=== PATIENT | female | born 1970 | race Caucasian/White ===

== ENCOUNTER 2020-02-05 10:21 | Emergency (ER) | payer BC, SELFPAY ==
--- NOTE | ~2020-02-05 | US_ITS ---
EXAMINATION: US pelvic complete w TV DATE: 02/05/2020 11:33 INDICATION: Right-sided pelvic pain, hysterectomy TECHNIQUE: Multiple transabdominal and endovaginal sonographic images of the pelvis were obtained. COMPARISON: 04/29/2018 FINDINGS: The uterus is surgically absent. The right ovary measures 2.5 x 2.1 x 2.3 cm. The left ovar y measures 4.5 x 2.2 x 2.8 cm. There is a 2.9 cm simple cyst of the left ovary. A 2.1 x 1.9 cm isoech oic lesion is also noted in the left ovary. There is normal vascular flow in the ovaries. There is no free fluid in the pelvis. IMPRESSION: 1. No sonographic correlate for the patient's symptoms. 2. Hemorrhagic cyst or endometrioma of the left ovary. Follow-up ultrasound in 6-12 weeks is recommen ded. Reviewed, dictated and finalized at location B. IMPRESSION: 1. No sonographic correlate for the patient's symptoms. 2. Hemorrhagic cyst or endometrioma of the left ovary. Follow-up ultrasound in 6-12 weeks is recommended.
--- NOTE | ~2020-02-05 | CT_ITS ---
EXAMINATION: CT abdomen pelvis w con DATE: 02/05/2020 12:15 INDICATION: Right lower quadrant abdominal pain TECHNIQUE: Computed tomography (CT) of the abdomen and pelvis was performed with mild atelectasis at the bilateral lung bases. mL Omnipaque-350 intravenous contrast. Automated exposure control and itera tive reconstruction technique were employed. The dose-length product was 389.30 mGy-cm. COMPARISON: 08/05/2012 FINDINGS: Discoid atelectasis in the bilateral lower lobes. Visualized inferior heart is normal. No pericardial or pleural effusion. Focal hepatic steatosis along the ligamentum teres. Gallbladder, spleen, pancre as and bilateral adrenal glands are normal. There are few scattered colonic diverticula without adjac ent inflammatory change to suggest diverticulitis. Small bowel and appendix are normal. 2.0 cm left o varian cyst demonstrating simple fluid attenuation. Smaller lesions measuring 2.3 cm the left ovary a nd 2.0 cm cyst in the right ovary both with thin peripheral rim enhancement and with greater than sim ple fluid attenuation centrally. Bladder is normal. The uterus is not identified and has likely been surgically resected. No free intraperitoneal gas or fluid. No pathologically enlarged abdominal or pe lvic lymphadenopathy. Minimal scattered degenerative skeletal changes. IMPRESSION: 1. Couple indeterminate bilateral ovarian lesions measuring 2.3 cm on the left and 2.0 cm on the righ t with greater than simple fluid attenuation centrally with most likely differential including comple x hemorrhagic or corpus luteum cysts or endometrioma. Solid neoplasm considered less likely. Recommen d follow-up ultrasound in 6-12 weeks. 2. Normal appendix and gallbladder. No other acute intra-abdominal/pelvic process. Reviewed, dictated and finalized at location A. IMPRESSION: 1. Couple indeterminate bilateral ovarian lesions measuring 2.3 cm on the left and 2.0 cm on the right with greater than simple fluid attenuation centrally wi th most likely differential including complex hemorrhagic or corpus luteum cyst s or endometrioma. Solid neoplasm considered less likely. Recommend follow-up u ltrasound in 6-12 weeks. 2. Normal appendix and gallbladder. No other acute intra-abdominal/pelvic proce ss.
[2020-02-05 10:26] VITALS: BP 162/95; PULSE 88; RESP 18; TEMP 36.9; O2SAT 100
[2020-02-05 10:43] LABS: Basophils Absolute Auto 0.1 K/mm3 (0.0-0.1); Basophils Percent Auto 1.1 % (0.2-1.2); Eosinophils Absolute Auto 0.2 K/mm3 (0-0.3); Eosinophils Percent Auto 2.5 % (0-4.4); Hematocrit 41.7 % (37.0-47.0); Hemoglobin 13.9 g/dL (12.0-15.0); Immature Granulocyte Absolute 0.03 K/mm3 (0.00-0.031); Immature Granulocyte Percent A 0.4 % (0-0.5); Lymphocytes Absolute Auto 2.01 K/mm3 (0.9-3.2); Mean Corpuscular HGB Conc 33.3 g/dl (32-36); Mean Corpuscular Hemoglobin 30.3 pg (26-34); Mean Corpuscular Volume 90.8 fl (80-100); Monocytes Absolute Auto 0.7 K/mm3 (0.1-0.6); Neutrophils Absolute Auto 5.4 K/mm3 (1.3-6.7); Platelet Count Result 261 k/mm3 (150-375); Red Blood Count 4.59 M/mm3 (4.2-5.4); Red Cell Distribution Width 12.4 % (11.5-14.5); White Blood Count 8.4 K/mm3 (4.5-10.0)
[2020-02-05 10:53] LABS: Alanine Aminotransferase 14 U/L (4-35); Albumin Level 4.3 g/dL (3.5-5.1); Alkaline Phosphatase 81 U/L (38-126); Anion Gap 7 mmol/L (8-16); Aspartate Amino Transferase 22 U/L (14-36); Bilirubin,Total 0.4 mg/dL (0.2-1.3); Blood Urea Nitrogen 11 mg/dL (7-17); Calcium 9.2 mg/dL (8.4-10.2); Carbon Dioxide 24 mmol/L (22-30); Chloride 106 mmol/L (98-107); Estimated CRCL calculation 79 ml/min; Estimated Glomerular Filt Rate > 60; Glucose 106 mg/dL (65-105); Lipase 46 U/L (23-300); Potassium 4.1 mmol/L (3.4-5.0); Sodium 137 mmol/L (137-145)
--- NOTE | 2020-02-05 10:55 | ED.ABDPAIN ---
HPI - Abdominal Pain General Chief Complaint: Abdominal Pain <SHARON Canas Last Filed: 02/05/20 12:57> Stated Complaint: abd pain, r/o ovary issue per pt <SHARON Canas Last Filed: 02/05/20 12:57> Time Seen by Provider: 02/05/20 10:40 <SHARON Canas Last Filed: 02/05/20 12:57> Source: patient <SHARON Canas Last Filed: 02/05/20 12:57> Mode of arrival: ambulatory <SHARON Canas Last Filed: 02/05/20 12:57> Limitations: no limitations <SHARON Canas Last Filed: 02/05/20 12:57> History of Present Illness HPI narrative: This is a 49-year-old female that presents the emergency department for right-sided pelvic pain x4 days. Reports history of ovarian cysts and that this feels similar. Reports the pain is squeezing in nature. She has been taking ibuprofen with some relief. Denies fever, nausea, vomiting, dysuria, or hematuria. <SHARON Canas Last Filed: 02/05/20 12:57> Related Data Home Medications: Home Medications Medication Instructions Recorded Confirmed amitriptyline 50 mg PO DAILY 04/07/19 04/07/19 <SHARON Canas Last Filed: 02/05/20 12:57> Allergies/Adverse Reactions: Allergies Allergy/AdvReac Type Severity Reaction Status Date / Time cephalexin Allergy Mild Rash Verified 02/05/20 10:30 <SHARON Canas Last Filed: 02/05/20 12:57> Review of Systems Review of Systems: Narrative: CONSTITUTIONAL: Denies fever GASTROINTESTINAL: Reports abdominal pain. Denies nausea, vomiting, or diarrhea. GENITOURINARY: Denies dysuria or hematuria. <SHARON Canas Last Filed: 02/05/20 12:57> All systems reviewed & are unremarkable except as noted in HPI and below <SHARON Canas Last Filed: 02/05/20 12:57> FORMERLY [facility] Past Medical History Medical History: Medical History (Updated 02/05/20 @ 12:57 by Sylvia Nunes PA-C) History of migraine <Sylvia Nunes PA-C - Last Filed: 02/05/20 12:57> Social History Social History: Social History Smoking status: Heavy tobacco smoker Alcohol intake: current <Sylvia Nunes PA-C - Last Filed: 02/05/20 12:57> Exam Narrative: Exam Narrative: GENERAL: Well-appearing, well-nourished, and in no acute distress. HEAD: Normocephalic, atraumatic. EYES: EOMI. CHEST: Clear to auscultation. No respiratory distress. No wheezes rales or rhonchi HEART: Regular rate and rhythm. No murmur heard. Normal peripheral pulses. ABDOMEN: Soft, nontender, nondistended, normal active bowel sounds. EXTREMITIES: Normal range of motion. No edema. SKIN: Warm, dry, no rash. NEURO: No focal deficits. Alert and oriented x3. PSYCH: Normal mood and affect <Sylvia Nunes PA-C - Last Filed: 02/05/20 12:57> Course Vital Signs Vital signs: Vital Signs Temperature 98.4 F 02/05/20 10:26 Pulse Rate 88 02/05/20 10:26 Respiratory Rate 18 02/05/20 10:26 Blood Pressure 162/95 H 02/05/20 10:26 Pulse Oximetry 100 02/05/20 10:26 Temperature 98.4 F 02/05/20 10:26 Pulse Rate 87 02/05/20 13:03 Respiratory Rate 18 02/05/20 13:03 Blood Pressure 133/94 H 02/05/20 13:03 Pulse Oximetry 100 02/05/20 13:03 <Sylvia Nunes PA-C - Last Filed: 02/05/20 12:57> Vital Signs Temperature 98.4 F 02/05/20 10:26 Pulse Rate 88 02/05/20 10:26 Respiratory Rate 18 02/05/20 10:26 Blood Pressure 162/95 H 02/05/20 10:26 Pulse Oximetry 100 02/05/20 10:26 Temperature 98.4 F 02/05/20 10:26 Pulse Rate 87 02/05/20 13:03 Respiratory Rate 18 02/05/20 13:03 Blood Pressure 133/94 H 02/05/20 13:03 Pulse Oximetry 100 02/05/20 13:03 <Mildred Ren MD - Last Filed: 02/05/20 16:00> MDM - Abdominal Pain MDM Narrative Medical decision making narrative: Patient presents to the emergency department for right-sided abdomina
[2020-02-05 10:59] LABS: Add Urine Microscopic? YES; Appearance Urine Cloudy (Clear); Bacteria Urine Trace /hpf; Bilirubin Urine Negative (Negative); Blood Urine Negative (Negative); Color Urine Yellow (Yellow); Glucose Urine UA Negative (Negative); Ketones Urine Negative (Negative); Leukocyte Esterase Ur Negative LEU/UL (Negative); Nitrate Urine Negative (Negative); Protein Urine Negative (Negative); RBC Urine 0-2 /hpf (0-2); Specific Grav Ur 1.008 (1.001-1.035); Squamous Epithelial Cell Urine Many /hpf (Few); Urobilinogen Urine Negative mg/dL (<2.0); WBC Urine 0-3 /hpf
[2020-02-05 13:03] VITALS: BP 133/94; PULSE 87; RESP 18; O2SAT 100
== END 2020-02-05 13:04 | disposition home or self-care (01) ==
PROVIDERS: Emergency Provider General Practice; PCP Family Medicine
DX: N83.201 Unspecified ovarian cyst, right side (principal); N83.202 Unspecified ovarian cyst, left side; F17.200 Nicotine dependence, unspecified, uncomplicated
CPT/HCPCS: 36415; 74177; 76830; 76856; 80053; 81001; 83690; 85025; 99284; Q9967

== ENCOUNTER 2020-03-06 07:53 | Outpatient (CLI) | payer BC, SELFPAY ==
[2020-03-06 09:24] LABS: Carcinoembryonic Antigen 3.4 ng/mL (0.0-3.0)
[2020-03-10 05:45] LABS: CA-125 10 U/mL (<35)
== END 2020-03-06 07:54 | disposition home or self-care (01) ==
PROVIDERS: PCP Family Medicine; Visit Provider Obstetrics & Gynecology
DX: N83.202 Unspecified ovarian cyst, left side (principal)
CPT/HCPCS: 36415; 82378; 86304

== ENCOUNTER 2020-05-06 09:23 | Outpatient (NON) | payer BC, SELFPAY ==
[2020-05-07 16:06] LABS: SARS-CoV-2 RNA PCR Negative
== END 2020-05-06 09:24 ==
LOC: ANHCOVIDDT 09:25
PROVIDERS: Visit Provider Nurse Practitioner Family
DX: Z20.828 Contact with and (suspected) exposure to other viral communicable diseases (principal); R05 Cough
CPT/HCPCS: 87635; C9803; U0003

== ENCOUNTER → 2020-07-07 06:51 | Outpatient (CLI) | payer BC, SELFPAY ==
[2020-07-07 22:50] LABS: SARS-CoV-2 RNA PCR Negative
== END ==
PROVIDERS: PCP Family Medicine; Visit Provider Physician Assistant
DX: Z20.822 Contact with and (suspected) exposure to COVID-19 (principal); R05 Cough
CPT/HCPCS: C9803; U0003; U0005

== ENCOUNTER → 2021-08-27 02:47 | Outpatient (CLI) | payer BC, SELFPAY ==
[2021-08-27 11:43] LABS: Influenza A QL RT-PCR Negative (Negative); Influenza B QL RT-PCR Negative (Negative); SARS-CoV-2 RNA PCR Negative
== END ==
PROVIDERS: PCP Family Medicine; Visit Provider Physician Assistant
DX: R68.89 Other general symptoms and signs (principal); Z20.822 Contact with and (suspected) exposure to COVID-19
CPT/HCPCS: 87502; C9803; U0003; U0005

== ENCOUNTER 2023-03-29 13:35 | Emergency (ER) | payer OTHER, SELFPAY ==
[2023-03-29 14:06] VITALS: BP 122/84; PULSE 93; RESP 16; TEMP 36.4; O2SAT 99
--- NOTE | 2023-03-29 14:07 | ED.URI ---
HPI - URI/Sore Throat General Chief Complaint: Upper Respiratory Infection Stated Complaint: sorethroat Time Seen by Provider: 03/29/23 14:07 Source: patient Mode of arrival: ambulatory Limitations: no limitations History of Present Illness HPI Narrative: Patient is a 52-year-old female who presents with sore throat that started yesterday. Son has similar symptoms. Patient states when she has strep it always starts like this. Denies any congestion, cough, fever, chills, nausea, vomiting, diarrhea. Has not taken anything for symptoms. Related Data Allergies Allergy/AdvReac Type Severity Reaction Status Date / Time cephalexin Allergy Mild Rash Verified 06/02/22 14:27 Review of Systems Review of Systems: All systems reviewed & are unremarkable except as noted in HPI and below Constitutional: Constitutional: Denies body ache(s), Denies fever(s), Denies headache(s), Denies malaise and Denies weakness Eyes: Eyes: Denies loss of vision ENT: Denies otalgia, Denies headache(s), Reports nasal congestion, Denies sinus pain and Reports sore throat Cardiovascular: Cardiovascular: Denies chest pain, Denies irregular heart rhythm and Denies dyspnea Respiratory: Respiratory: Denies cough and Denies dyspnea Gastrointestinal: Gastrointestinal: Denies abdominal pain, Denies melena, Denies hematochezia, Denies diarrhea, Denies nausea and Denies vomiting Musculoskeletal: Musculoskeletal: Denies back pain, Denies myalgias and Denies arthralgias Integumentary/Breasts: Skin/Breast: Denies pruritus and Denies rash Neurologic: Denies headache(s), Denies loss of vision and Denies weakness Psychiatric: Psychiatric: Reports no additional psychiatric complaints COUNTS INCLUDE 234 BEDS AT THE [facility] Past Medical History Medical History History of migraine Social History Social History Social History: Smoking packs per day: 1 Smoking cigarettes per day: 20.0 Years smoked: 20 Smoking pack-years: 20.00 Smoking status: Current every day smoker Tobacco type: cigarettes Second hand tobacco smoke exposure: Yes Alcohol intake: current Alcohol use details: Occasionally Substance use: never Substance use type: does not use Lack of Transportation: No Lack of Food: Never True Current Housing: I Have Housing Concerned About Future Housing: No Difficulty Paying Gas/Electric Bills: No Difficulty Paying for Meds: No Currently Unemployed: No Education: Associate Degree Difficulty w/ Childcare or Family Care: No Living arrangements: with family Additional living arrangements comments: Pt lives with her boyfriend, along with her son. Occupation/Education: occupation Additional occupation/education comments: Pt works 2 jobs. Gender identity (if verbalized by the patient): Female Sexual Orientation (if Verbalized by the Patient): Straight or Heterosexual Comments At time of signature, agree with nursing past medical, surgical, social and family history. There is no relevant family history pertinent to the presenting complaint. Exam Const: General: cooperative, healthy appearing, comfortable, no acute distress and well nourished Nutritional Appearance: well nourished Orientation/consciousness: patient oriented x3 Limitations: no limitations HENMT: Head: normal to inspection, normocephalic and atraumatic Ears: hearing grossly normal bilaterally, external ears normal, TM's normal bilaterally and EAC's normal Face/Nose/Sinus: Normal external nose present, Normal nares present, Normal nasal mucous membranes and turbinates present, Normal septum present, normal facial exam, sinuses nontender and face symmetric Face and sinus: normal facial exam, sinuses nontender and face symmetric Mouth: Yes Normal oral and palatal mucosa present, Yes lip normal and Yes moist mucous membranes Teeth and gingiva: dentition normal Throat: uvula midl
== END 2023-03-29 14:36 | disposition home or self-care (01) ==
PROVIDERS: Emergency Provider Nurse Practitioner Family; PCP Family Medicine
DX: J06.9 Acute upper respiratory infection, unspecified (principal); F17.210 Nicotine dependence, cigarettes, uncomplicated
CPT/HCPCS: 99211; G0463

== ENCOUNTER 2023-04-26 10:10 | Emergency (ER) | payer OTHER, SELFPAY ==
--- NOTE | 2023-04-26 10:25 | ED.URI ---
HPI - URI/Sore Throat General Chief Complaint: Upper Respiratory Infection Stated Complaint: congestion,cough Time Seen by Provider: 04/26/23 10:25 Source: patient Mode of arrival: ambulatory Limitations: no limitations History of Present Illness HPI Narrative: Patient is a 52-year-old female who presents with congestion and cough that started Monday and have worsened. Patient states she has history of bronchitis and feels the same. Patient has been taking [id number] DayQuil, NyQuil and sinus medication with no relief. Denies any fever, chills, nausea, vomiting, diarrhea. Related Data Allergies Allergy/AdvReac Type Severity Reaction Status Date / Time cephalexin Allergy Mild Rash Verified 04/24/23 14:07 Review of Systems Review of Systems: All systems reviewed & are unremarkable except as noted in HPI and below Constitutional: Constitutional: Denies body ache(s), Denies chills, Denies fatigue, Denies fever(s), Denies headache(s), Denies malaise and Denies weakness Eyes: Eyes: Denies blurry vision, Denies itchy eyes and Denies loss of vision ENT: Denies otalgia, Denies headache(s), Reports nasal congestion, Denies sinus pain and Denies sore throat Cardiovascular: Cardiovascular: Denies chest pain, Denies irregular heart rhythm and Denies dyspnea Respiratory: Respiratory: Reports cough and Denies dyspnea Gastrointestinal: Gastrointestinal: Denies abdominal pain, Denies diarrhea, Denies nausea and Denies vomiting Musculoskeletal: Musculoskeletal: Denies back pain, Denies myalgias and Denies arthralgias Integumentary/Breasts: Skin/Breast: Denies pruritus and Denies rash Neurologic: Denies headache(s), Denies loss of vision and Denies weakness Psychiatric: Psychiatric: Reports no additional psychiatric complaints Endocrine: Endocrine: Denies fatigue Allergic/Immunologic: Allergic/Immunologic: Denies itchy eyes PMFSH Past Medical History Medical History History of migraine Screening mammogram, encounter for Surgical History Surgical History Delivery by section (~2005) Primary C/S - large for dates H/O hemorrhoidectomy (08/17/05) H/O laparoscopy (01/08/04) Dx Lap w/HSC, D&C - endometriosis, adenomyosis H/O laparoscopy (03/12/20) Laparoscopic adhesiolysis and left salpingo-oopherectomy ; Benign H/O LEEP (07/05/07) Mild/Moderate Dysplasia,HGSIL/LGSIL, JEREMI II - JEREMI II - margins free History of colposcopy (06/18/07) [place]/Cx Bx - HGSIL, JEREMI III, Mod Dysplasia History of gynecological procedure 05/12/2006 Mirena iud insertion/ 07/14/2006 removal History of hysteroscopy (~1994) D&C History of hysteroscopy (07/13/11) HSC, D&C menorrhagia, dysmenorrhea - benign History of robot-assisted laparoscopic hysterectomy (08/24/11) RA TLH - Ovaries Remain Social History Social History (Updated 04/24/23 @ 14:09 by Elvia Sun, [facility]) Social History: Smoking packs per day: 1 Smoking cigarettes per day: 20.0 Years smoked: 20 Smoking pack-years: 20.00 Smoking status: Current every day smoker Tobacco type: cigarettes Second hand tobacco smoke exposure: Yes Alcohol intake: current Drinks per week: 2 Alcohol use details: Occasionally Substance use: never Substance use type: does not use Lack of Transportation: No Lack of Food: Never True Current Housing: I Have Housing Concerned About Future Housing: No Difficulty Paying Gas/Electric Bills: No Difficulty Paying for Meds: No Currently Unemployed: No Education: Associate Degree Difficulty w/ Childcare or Family Care: No Living arrangements: with family Additional living arrangements comments: spouse, along with her son. 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
[2023-04-26 10:44] VITALS: BP 125/82; PULSE 92; RESP 18; TEMP 36.5; O2SAT 99
== END 2023-04-26 11:28 | disposition home or self-care (01) ==
PROVIDERS: Emergency Provider Nurse Practitioner Family; PCP Family Medicine
DX: J40 Bronchitis, not specified as acute or chronic (principal); F17.210 Nicotine dependence, cigarettes, uncomplicated
CPT/HCPCS: 99213; G0463

== ENCOUNTER 2023-07-07 16:25 | Emergency (ER) | payer OTHER, SELFPAY ==
--- NOTE | 2023-07-07 16:31 | ED.EXTPRO ---
HPI - Extremity Problem General Chief complaint: Extremity Problem,Nontraumatic Stated complaint: Right and Left Ankle Swelling Time Seen by Provider: 07/07/23 16:39 Mode of arrival: ambulatory Limitations: no limitations History of Present Illness HPI Narrative: 52-year-old female presents concern for bilateral ankle swelling. Reports she has had swelling for about 3 weeks. Reports swelling had been worsening throughout the day in improving when she woke up in the morning. She reports over the last couple of days the swelling is present all day it is still present to the morning. She denies any pain or injury. Denies redness, warmth of the ankles. She denies any shortness of breath, cough. She denies any history of similar problems. She reports today she had 1 episode of mid sternal chest discomfort. MD Complaint: extremity swelling Related Data Allergies Allergy/AdvReac Type Severity Reaction Status Date / Time cephalexin AdvReac Mild Rash Verified 07/07/23 16:29 Review of Systems Review of Systems: CONSTITUTIONAL: Denies malaise, chills, sweats, or fever. CARDIOVASCULAR: Reports 1 episode of midsternal chest discomfort today. Denies palpitations. Reports bilateral ankle edema. RESPIRATORY: Denies cough or dyspnea. SKIN: Denies redness, warmth All systems reviewed & are unremarkable except as noted in HPI and below PMFSH Past Medical History Medical History History of migraine Screening mammogram, encounter for Surgical History Surgical History Delivery by section (~2005) Primary C/S - large for dates H/O hemorrhoidectomy (08/17/05) H/O laparoscopy (01/08/04) Dx Lap w/HSC, D&C - endometriosis, adenomyosis H/O laparoscopy (03/12/20) Laparoscopic adhesiolysis and left salpingo-oopherectomy ; Benign H/O LEEP (07/05/07) Mild/Moderate Dysplasia,HGSIL/LGSIL, JEREMI II - JEREMI II - margins free History of colposcopy (06/18/07) [place]/Cx Bx - HGSIL, JEREMI III, Mod Dysplasia History of gynecological procedure 05/12/2006 Mirena iud insertion/ 07/14/2006 removal History of hysteroscopy (~1994) D&C History of hysteroscopy (07/13/11) HSC, D&C menorrhagia, dysmenorrhea - benign History of robot-assisted laparoscopic hysterectomy (08/24/11) RA TLH - Ovaries Remain Social History Social History Social History: Smoking packs per day: 1 Smoking cigarettes per day: 20.0 Years smoked: 20 Smoking pack-years: 20.00 Smoking status: Current every day smoker Tobacco type: cigarettes Second hand tobacco smoke exposure: Yes Alcohol intake: current Drinks per week: 2 Alcohol use details: Occasionally Substance use: never Substance use type: does not use Do You Feel Safe in your Home?: Yes Lack of Transportation: No Lack of Food: Never True Current Housing: I Have Housing Concerned About Future Housing: No Difficulty Paying Gas/Electric Bills: No Difficulty Paying for Meds: No Currently Unemployed: No Education: Associate Degree Difficulty w/ Childcare or Family Care: No Living arrangements: with family Additional living arrangements comments: spouse, along with her son. 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 There is no relevant family history pertinent to the presenting complaint Exam Narrative: GENERAL: Well-appearing, well-nourished, and in no acute distress. HEAD: Normocephalic, atraumatic. EYES: PERRLA, sclera clear ENT: Nares clear. Mucous membranes moist. NECK: Supple. No jugular venous distens
[2023-07-07 16:33] VITALS: BP 125/76; PULSE 93; RESP 18; TEMP 36.6; O2SAT 98
--- NOTE | 2023-07-07 16:47 | ECG_ITS ---
Measurements Intervals [place] Rate: 84 P: 26 DC: 121 QRS: 25 QRSD: 100 T: 33 QT: 357 QTc: 423 Interpretive Statements SINUS RHYTHM LOW QRS VOLTAGE IN PRECORDIAL LEADS [QRS DEFLECTION < 1.0 mV IN CHEST LEADS] INCOMPLETE RIGHT BUNDLE BRANCH BLOCK [90+ ms QRS DURATION, TERMINAL R IN V1/V2, 40+ ms S IN I/aVL/V4/V5/V6] ABNORMAL ECG NO PREVIOUS ECG AVAILABLE FOR COMPARISON Electronically Signed On 07-08-2023 8:01:37 [employer]ICAL [employer] by Praful Yin M.D.
== END 2023-07-07 17:05 | disposition home or self-care (01) ==
PROVIDERS: Emergency Provider Nurse Practitioner
DX: R60.0 Localized edema (principal); I45.10 Unspecified right bundle-branch block; F17.210 Nicotine dependence, cigarettes, uncomplicated
CPT/HCPCS: 93005; 99213; G0463

== ENCOUNTER 2023-07-20 09:09 | Outpatient (CLI) | payer OTHER, SELFPAY ==
--- NOTE | ~2023-07-20 | MM_ITS ---
EXAMINATION: MM screening concepcion BI w fausto HISTORY: Screening TECHNIQUE: Craniocaudal and mediolateral oblique 3-D tomosynthesis images were obtained and synthetic 2-D images were generated. CAD analysis was submitted and interpreted. COMPARISON: 04/09/2015 BREAST PARENCHYMAL COMPOSITION: Not dense: There are scattered areas of fibroglandular density. FINDINGS: There is no evidence of suspicious mass, calcification, or architectural distortion to sugg est malignancy in either breast. There has been no suspicious interval change. IMPRESSION: 1. No mammographic evidence of malignancy. 2. Recommend routine screening mammography in one year. BI-RADS Category 1: Negative Reviewed, dictated and finalized at location A. 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
== END 2023-07-20 09:10 | disposition home or self-care (01) ==
PROVIDERS: PCP Nurse Practitioner Family; Visit Provider Nurse Practitioner Family
DX: Z12.31 Encounter for screening mammogram for malignant neoplasm of breast (principal)
CPT/HCPCS: 77063; 77067

== ENCOUNTER 2023-08-10 00:33 | Day surgery (SDC) | payer OTHER, SELFPAY ==
[2023-08-02 15:44] VITALS: BMI 28.3
--- NOTE | 2023-08-08 09:19 | SUR.PREOP ---
Patient called regarding upcoming procedure. Reviewed preop instructions, appointment times, and procedure prep.
[2023-08-10 08:25] VITALS: BP 121/92; PULSE 89; RESP 18; TEMP 36.1; O2SAT 100
[2023-08-10] MEDS: LACTATED RINGERS 1,000 ML 150 ML IV CONT (08:39)
--- NOTE | 2023-08-10 09:28 | WPDANESEPPF ---
Anes - Initial Pre Proc Eval Procedure: Operation Date: 08/10/23 09:30 Proposed Procedures p Screening Colonoscopy - Wood Espinal DO Date/Time: 08/10/23 09:28 Surgeon: Wood Espinal DO Pre Op Diagnosis: neoplasm screening Patient Data Age: 52 Gender: F Height: 1.68 m Weight: 78.9 kg Last Vital Signs Temp 97 F L 08/10/23 08:25 Pulse 89 08/10/23 08:25 Resp 18 08/10/23 08:25 BP 121/92 H 08/10/23 08:25 Pulse Ox 100 08/10/23 08:25 O2 Del Method Room Air 08/10/23 08:25 Allergies Allergy/AdvReac Type Severity Reaction Status Date / Time cephalexin Allergy Mild Rash Verified 08/10/23 08:24 Home Medications Medication Instructions Recorded Confirmed Type estradiol 0.5 mg tablet 0.5 mg PO DAILY #90 tabs 04/24/23 08/02/23 Rx sumatriptan succinate 50 mg tablet 50 mg PO ONCE PRN migraine 06/07/23 08/02/23 Rx headache #7 tabs furosemide 20 mg tablet (Lasix) 20 mg PO QAM #30 tabs 07/18/23 08/02/23 Rx galcanezumab-gnlm 120 mg/mL 240 mg (2 mL) subcut ONCE #2 mL 07/25/23 08/02/23 Rx subcutaneous syringe (Emgality) amitriptyline 50 mg tablet 50 mg PO HS 08/02/23 08/02/23 History Patient hx anesthesia problems: none Family hx anesthesia problems: none Results Review: All pre-operative results and documents have been reviewed as part of the pre-operative evaluation. FOR[facility]LY [facility] Past Medical History Medical History History of migraine Screening mammogram, encounter for Surgical History Surgical History Delivery by section (~2005) Primary C/S - large for dates H/O hemorrhoidectomy (08/17/05) H/O laparoscopy (01/08/04) Dx Lap w/HSC, D&C - endometriosis, adenomyosis H/O laparoscopy (03/12/20) Laparoscopic adhesiolysis and left salpingo-oopherectomy ; Benign H/O LEEP (07/05/07) Mild/Moderate Dysplasia,HGSIL/LGSIL, JEREMI II - JEREMI II - margins free History of colposcopy (06/18/07) [place]/Cx Bx - HGSIL, JEREMI III, Mod Dysplasia History of gynecological procedure 05/12/2006 Mirena iud insertion/ 07/14/2006 removal History of hysteroscopy (~1994) D&C History of hysteroscopy (07/13/11) HSC, D&C menorrhagia, dysmenorrhea - benign History of robot-assisted laparoscopic hysterectomy (08/24/11) RA TLH - Ovaries Remain Social History Social History Social History: Smoking packs per day: 1 Smoking cigarettes per day: 20.0 Years smoked: 30 Smoking pack-years: 30.00 Smoking status: Current every day smoker Tobacco type: cigarettes Second hand tobacco smoke exposure: Yes Alcohol intake: current Drinks per week: 5 Alcohol use details: GLASSES WINE Substance use: never Substance use type: does not use Do You Feel Safe in your Home?: Yes Lack of Transportation: No Lack of Food: Never True Current Housing: I Have Housing Concerned About Future Housing: No Difficulty Paying Gas/Electric Bills: No Difficulty Paying for Meds: No Currently Unemployed: No Education: Associate Degree Difficulty w/ Childcare or Family Care: No Living arrangements: with family Additional living arrangements comments: spouse, along with her son. 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
--- NOTE | 2023-08-10 09:46 | PM.IMHP ---
H&P: HPI History of Present Illness Date/Time: 08/10/23 09:46 Chief Complaint: Screening for colorectal cancer Narrative: this is a 52 year woman who presents for colonoscopy. Her last colonoscopy was about 10 years ago and was done for rectal pain and diarrhea. She states that this 1 was normal. She denies any family history colon cancer. No hematochezia or melena. She does have a history of hemorrhoidectomy when she was . Review of Systems Review of Systems: All systems reviewed & are unremarkable except as noted in HPI and below Constitutional: Constitutional: Denies chills, Denies fever(s), Denies headache(s) and Denies weight loss Eyes: Eyes: Denies change in vision ENT: Denies dizziness, Denies headache(s), Denies neck mass and Denies throat swelling Cardiovascular: Cardiovascular: Denies chest pain, Denies lightheadedness and Denies dyspnea Respiratory: Respiratory: Denies cough, Denies dyspnea and Denies wheezing Gastrointestinal: Gastrointestinal: Denies abdominal pain, Denies change in bowel habits, Denies nausea and Denies vomiting Genitourinary: Genitourinary: Denies hematuria and Denies dysuria Musculoskeletal: Musculoskeletal: Reports as per HPI Integumentary/Breasts: Skin/Breast: Reports as per HPI Neurologic: Denies dizziness and Denies headache(s) Allergic/Immunologic: Allergic/Immunologic: Denies throat swelling and Denies wheezing PMFSH Past Medical History Medical History History of migraine Screening mammogram, encounter for Surgical History Surgical History Delivery by section (~2005) Primary C/S - large for dates H/O hemorrhoidectomy (08/17/05) H/O laparoscopy (01/08/04) Dx Lap w/HSC, D&C - endometriosis, adenomyosis H/O laparoscopy (03/12/20) Laparoscopic adhesiolysis and left salpingo-oopherectomy ; Benign H/O LEEP (07/05/07) Mild/Moderate Dysplasia,HGSIL/LGSIL, JEREMI II - JEREMI II - margins free History of colposcopy (06/18/07) [place]/Cx Bx - HGSIL, JEREMI III, Mod Dysplasia History of gynecological procedure 05/12/2006 Mirena iud insertion/ 07/14/2006 removal History of hysteroscopy (~1994) D&C History of hysteroscopy (07/13/11) HSC, D&C menorrhagia, dysmenorrhea - benign History of robot-assisted laparoscopic hysterectomy (08/24/11) RA TLH - Ovaries Remain Social History Social History Social History: Smoking packs per day: 1 Smoking cigarettes per day: 20.0 Years smoked: 30 Smoking pack-years: 30.00 Smoking status: Current every day smoker Tobacco type: cigarettes Second hand tobacco smoke exposure: Yes Alcohol intake: current Drinks per week: 5 Alcohol use details: GLASSES WINE Substance use: never Substance use type: does not use Do You Feel Safe in your Home?: Yes Lack of Transportation: No Lack of Food: Never True Current Housing: I Have Housing Concerned About Future Housing: No Difficulty Paying Gas/Electric Bills: No Difficulty Paying for Meds: No Currently Unemployed: No Education: Associate Degree Difficulty w/ Childcare or Family Care: No Living arrangements: with family Additional living arrangements comments: spouse, along with her son. 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
[2023-08-10 10:36] VITALS: BP 116/78; PULSE 83; RESP 18; O2SAT 100
[2023-08-10 10:46] VITALS: BP 135/94; PULSE 79; RESP 20; O2SAT 100
[2023-08-10 10:56] VITALS: BP 130/89; PULSE 77; RESP 21; O2SAT 100
== END 2023-08-10 11:06 | disposition home or self-care (01) ==
PROVIDERS: PCP Nurse Practitioner Family; Visit Provider Surgery
PROC: 0DJD8ZZ Inspection of Lower Intestinal Tract, Via Natural or Artificial Opening Endoscopic (ICD-10-PCS; CPT 45378; principal; 2023-08-10 09:30)
DX: Z12.11 Encounter for screening for malignant neoplasm of colon (principal); D12.3 Benign neoplasm of transverse colon; D12.5 Benign neoplasm of sigmoid colon; D17.5 Benign lipomatous neoplasm of intra-abdominal organs; K62.1 Rectal polyp; K64.8 Other hemorrhoids; K57.30 Diverticulosis of large intestine without perforation or abscess without bleeding; G43.909 Migraine, unspecified, not intractable, without status migrainosus; F17.210 Nicotine dependence, cigarettes, uncomplicated; Z98.890 Other specified postprocedural states
CPT/HCPCS: 45385; 88305; J7120

== ENCOUNTER 2024-06-24 16:32 | Outpatient (CLI) | payer OTHER, SELFPAY ==
--- NOTE | ~2024-06-24 | CT_ITS ---
EXAMINATION: CT brain wo con DATE: 06/24/2024 16:50 INDICATION: Headache. TECHNIQUE: Computed tomography (CT) of the head was performed without intravenous contrast. The mA wa s adjusted according to patient size. Iterative reconstruction technique was employed. The dose-lengt h product was 605.33 mGy-cm. COMPARISON: Head CT 07/20/2009 FINDINGS: There is no intracranial hemorrhage, acute infarction, or abnormal intracranial mass lesion . The ventricles are normal in size. The paranasal sinuses are clear. The mastoid air cells are nahum l. The orbits are normal. IMPRESSION: 1. Normal brain. Reviewed, dictated and finalized at location A. F PHYSICAL THERAPIST IMPRESSION: 1. Normal brain.
--- OUTSIDE RECORDS SUMMARY | 2024-06-24 16:51 | XMS_ITS | Clinical Summary ---
Author Organization [facility] [email or web address] Address [address] [place] [address] Care Team Providers Care Change Advisor Name Role Phone Bony Garcia MD Primary Care Provider [phone] Source Comments [facility] [email or web address],non-owned Affiliates and Associated Physician Practices is amultiple site organization consisting of ambulatory clinics and hospital sitesin [place], [place], [place] and [place]. This disclosure is being madepursuant to the Care Everywhere program and may not contain all information available regarding this patient. Last updated 18.[email or web address] Allergies No known active allergies Medications Be aware that medications may not be up to date on this document. Always verify current medications with the patient. 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 Pulse 82 04/27/2016 5:58 PM BASS MECHANISM MAKER Temperature - - Respiratory Rate 16 04/27/2016 5:58 PM BASS MECHANISM MAKER Oxygen Saturation - - Inhaled Oxygen Concentration - - Weight - - Height - - Body Mass Index - - Plan of Treatment Health Maintenance Due Date Last Done Comments COLOGUARD (AGES 45-75) - COL ON CA SCREENING 1972 COLON MONITORING 1972 COLONOSCOPY - COLON CA SCREENING 1972 CT COLONOGRAPHY - COLON CA SCREENING 1972 Colorectal Cancer Screening 1972 FIT - COLON CA SCREENING 1972 FLEX SIG - COLON CA SCREENING 1972 LIPID TESTING 1972 MAMMOGRAM 1972 PAP SMEAR 1972 HIV SCREENING 10/19/1987 HEPATITIS C SCREENING 10/14/1990 DTAP/TDAP/TD VACCINES (1 - Tdap) 10/19/1991 HEPATITIS B VACCINE (1 of 3 - 19+ 3-dose series) 10/19/1991 PNEUMOCOCCAL VACCINE 50+ (1 of 1 - PCV) 2022 ZOSTER VACCINE (1 of 2) 2022 COVID-19 VACCINE (1 - 2023-2 5 season) 2024 INFLUENZA VACCINE (#1) 2024 DEPRESSION SCREENING 05/29/2024 HIB VACCINE Aged Out No longer eligi ble based on patient's age to complete this topic HPV VACCINE Aged Out No longer eligi ble based on patient's age to complete this topic MENINGOCOCCAL (Group B) VACCINE Aged Out No longer eligible based on patient's age to complete this topic MENINGOCOCCAL VACCINE Aged Out No susan suresh eligible based on patient's age to complete this topic PNEUMOCOCCAL VACCINE Aged Out No long er eligible based on patient's age to complete this topic Care Teams Change Advisor Relationship Specialty Start Date End Date Bony Garcia MD [address] [place] [address] PCP - General Family Medicine 04/27/16
--- OUTSIDE RECORDS SUMMARY | 2024-06-24 16:51 | XMS_ITS | Referral Summary ---
Author Organization [facility] [employer] Address [address] [place] [address] Care Team Providers Care Public Relations Specialist Name Role Phone Bony Garcia MD Primary Care Provider Source Comments [facility] [employer],non-owned Affiliates and Associated Physician Practices is amultiple site organization consisting of ambulatory clinics and hospital sitesin [place], [place], [place] and [place]. This disclosure is being madepursuant to the Care Everywhere program and may not contain all information available regarding this patient. 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
--- OUTSIDE RECORDS SUMMARY | 2024-06-24 16:51 | XMS_ITS | Patient Health Summary ---
Author Organization [facility] Address [address] [place] [address] Care Team Providers Care Material Stockkeeper Yard Name Role Phone Bony Garcia MD Primary Care Provider [phone] Note from [facility],non-owned Affiliates and Associated Physician Practices is amultiple site organization consisting of ambulatory clinics and hospital sitesin [place], [place], [place] and [place]. This disclosure is being madepursuant to the Care Everywhere program and may not contain all information available regarding this patient. Last updated 18.[facility] Allergies No known active allergies Medications Be [...] Comments Blood Pressure 115/68 04/27/2016 5:58 PM RETORT OPERATOR Pulse 82 04/27/2016 5:58 PM RETORT OPERATOR Temperature - - Respiratory Rate 16 04/27/2016 5:58 PM RETORT OPERATOR Oxygen Saturation - - Inhaled Oxygen Concentration - - Weight - - Height - - Body Mass Index - - Care Teams Material Stockkeeper Yard Relationship Specialty Start Date End Date Bony Garcia MD [address] [place] [address] PCP - General Family Medicine 04/27/16
== END 2024-06-24 16:33 | disposition home or self-care (01) ==
PROVIDERS: PCP Nurse Practitioner Family; Visit Provider Student in an Organized Health Care Education/Training Program
DX: G43.009 Migraine without aura, not intractable, without status migrainosus (principal)
CPT/HCPCS: 70450